=== PATIENT | female | born 1940 | race Caucasian/White ===

== ENCOUNTER 2020-11-17 16:08 | Observation (INO) ==
[2020-11-17] MEDS ORDERED: 0.9 % Sodium Chloride 1,000 ML IVC ONE (16:34)
[2020-11-17] MEDS ORDERED: Aspirin 325 MG TABLET PO ONE (16:34)
[2020-11-17 16:49] LABS: Basophils % 0.3 %; Eosinophils % 0.4 %; Hemoglobin 14.8 g/dL (11.5-15.4); Immature Granulocytes % 0.3 % (0-4); Lymphocytes # 1.7 K/mcL (0.6-4.6); Mean Corpuscular HGB Conc 32.9 g/dL (31.6-35.5); Mean Corpuscular Hemoglobin 29.3 pg (28.0-33.3); Mean Corpuscular Volume 89.1 fL (83.0-100.0); Monocytes # 0.7 K/mcL (0.0-1.3); Monocytes % 7.6 %; Neutrophils # 6.4 K/mcL (1.6-8.9); Platelet Count 229 K/mcL (140-400); Red Blood Count 5.05 M/mcL (3.82-4.97); Red Cell Distribution Width 13.4 % (11.5-14.5); Segmented Neutrophils % 72.4 %; White Blood Count 8.9 K/mcL (4.3-11.1)
[2020-11-17 16:58] LABS: INR 1.1; Prothrombin Time 12.4 Seconds (9.4-12.1)
[2020-11-17 17:12] LABS: BUN/Creatinine Ratio 24 (6-26); Blood Urea Nitrogen 22 mg/dL (8-23); Calcium 9.6 mg/dL (8.6-10.3); Carbon Dioxide 28 mEq/L (23-29); Chloride 105 mEq/L (98-107); Glucose 120 mg/dL (70-105); Magnesium 1.6 mg/dL (1.6-2.6); Osmolality,Calculated 297 (280-300); Potassium 3.5 mEq/L (3.5-5.1); Sodium 141 mEq/L (136-145); Troponin I < 0.03 ng/mL (< 0.04); eGFR For African Americans > 60 (> 60); eGFR For Non-African Americans > 60 (> 60)
[2020-11-17 17:21] LABS: Thyroid Stimulating Hormone 0.614 mcIU/mL (0.340-5.600)
[2020-11-17] MEDS ORDERED: DilTIAZem 50 MG/50 ML IV.SOLN IVC SCH (17:30)
[2020-11-17] MEDS ORDERED: *HR* Heparin 5,000 UNIT/ML VIAL IVP ONE (18:16)
[2020-11-17] MEDS ORDERED: *HR* Heparin 5,000 UNIT/ML VIAL IVP PRN ×2 (18:16)
[2020-11-17 19:11] LABS: Hematocrit 45.6 % (35.3-44.9); Hemoglobin 15.1 g/dL (11.5-15.4); Mean Corpuscular HGB Conc 33.1 g/dL (31.6-35.5); Mean Corpuscular Hemoglobin 29.5 pg (28.0-33.3); Mean Corpuscular Volume 89.2 fL (83.0-100.0); Mean Platelet Volume 9.6 fL (9.4-12.4); Platelet Count 245 K/mcL (140-400); Red Blood Count 5.11 M/mcL (3.82-4.97); Red Cell Distribution Width 13.2 % (11.5-14.5); White Blood Count 9.1 K/mcL (4.3-11.1)
[2020-11-17 19:20] LABS: Heparin anti-factor XA UFH 0.04 IU/mL (0.30-0.70)
[2020-11-17 19:21] LABS: Prothrombin Time 11.8 Seconds (9.4-12.1)
[2020-11-17] MEDS: Heparin 25,000UNIT/250ML 1/2NS 25,000 UNIT/250 ML IV.SOLN IVC SCH (19:26)
[2020-11-17] MEDS ORDERED: Acetaminophen 325 MG TABLET PO PRN (20:25)
[2020-11-17] MEDS ORDERED: Ondansetron 4 MG/2 ML VIAL IVP PRN (20:25)
[2020-11-17] MEDS ORDERED: Naloxone 0.4 MG/ML INJ IVP PRN (20:25)
[2020-11-17] MEDS ORDERED: Perflutren Lipid Microsphere 1.3 ML in 0.9 % Sodium Chloride 8.7 ML IVP PRN (20:26)
[2020-11-17 22:39] LABS: BUN/Creatinine Ratio 22 (6-26); Blood Urea Nitrogen 17 mg/dL (8-23); Carbon Dioxide 25 mEq/L (23-29); Chloride 107 mEq/L (98-107); Glucose 127 mg/dL (70-105); Osmolality,Calculated 295 (280-300); Potassium 3.6 mEq/L (3.5-5.1); Sodium 141 mEq/L (136-145); eGFR For African Americans > 60 (> 60); eGFR For Non-African Americans > 60 (> 60)
[2020-11-17] MEDS: DilTIAZem 50 MG/50 ML IV.SOLN IVC SCH (23:54)
[2020-11-18 01:34] LABS: Basophils % 0.3 %; Eosinophils % 0.3 %; Hematocrit 44.2 % (35.3-44.9); Hemoglobin 14.6 g/dL (11.5-15.4); Immature Granulocytes % 0.1 % (0-4); Lymphocytes # 1.7 K/mcL (0.6-4.6); Lymphocytes % 24.1 %; Mean Corpuscular Hemoglobin 29.1 pg (28.0-33.3); Mean Corpuscular Volume 88.2 fL (83.0-100.0); Mean Platelet Volume 10.2 fL (9.4-12.4); Monocytes # 0.5 K/mcL (0.0-1.3); Monocytes % 7.5 %; Neutrophils # 4.6 K/mcL (1.6-8.9); Platelet Count 231 K/mcL (140-400); Red Blood Count 5.01 M/mcL (3.82-4.97); Red Cell Distribution Width 13.4 % (11.5-14.5); Segmented Neutrophils % 67.7 %; White Blood Count 6.8 K/mcL (4.3-11.1)
[2020-11-18 01:57] LABS: Chol/HDL Ratio 2.6 (0-4.9); Magnesium 1.8 mg/dL (1.6-2.6)
[2020-11-18 02:05] LABS: Bilirubin,Urine Negative (Negative); Blood,Urine Negative (Negative); Clarity,Urine Clear (Clear); Color,Urine Colorless (Yellow); Glucose,Urine (UA) Normal (Normal); Ketones,Urine Trace mg/dL (Negative); Leukocyte Esterase,Urine Negative (Negative); Nitrite,Urine Negative (Negative); PH,Urine 6.5 pH Units (5.0-8.0); Protein,Urine Negative (Neg-Trace); Specific Gravity,Urine 1.012 (1.010-1.025); Urobilinogen,Urine Normal (Normal)
[2020-11-18 03:48] LABS: Estimated Average Glucose 134 mg/dl; Hemoglobin A1C 6.3 %
[2020-11-18] MEDS: DilTIAZem 50 MG/50 ML IV.SOLN IVC SCH (11:50)
[2020-11-18] MEDS: lisinopriL 20 MG TABLET PO SCH (12:36)
[2020-11-18] MEDS: Aspirin Enteric Coated 81 MG Tablet PO SCH (12:36)
[2020-11-18] MEDS: Heparin 25,000UNIT/250ML 1/2NS 25,000 UNIT/250 ML IV.SOLN IVC SCH ×2 (15:22→17:29)
[2020-11-19 03:07] LABS: Hematocrit 42.6 % (35.3-44.9); Hemoglobin 13.5 g/dL (11.5-15.4); Mean Corpuscular HGB Conc 31.7 g/dL (31.6-35.5); Mean Corpuscular Hemoglobin 28.9 pg (28.0-33.3); Mean Corpuscular Volume 91.2 fL (83.0-100.0); Mean Platelet Volume 9.7 fL (9.4-12.4); Platelet Count 215 K/mcL (140-400); Red Blood Count 4.67 M/mcL (3.82-4.97); Red Cell Distribution Width 13.5 % (11.5-14.5); White Blood Count 5.6 K/mcL (4.3-11.1)
[2020-11-19 03:36] LABS: BUN/Creatinine Ratio 23 (6-26); Blood Urea Nitrogen 16 mg/dL (8-23); Calcium 8.8 mg/dL (8.6-10.3); Carbon Dioxide 24 mEq/L (23-29); Chloride 108 mEq/L (98-107); Glucose 113 mg/dL (70-105); Magnesium 1.9 mg/dL (1.6-2.6); Osmolality,Calculated 292 (280-300); Potassium 3.8 mEq/L (3.5-5.1); Sodium 140 mEq/L (136-145); eGFR For African Americans > 60 (> 60); eGFR For Non-African Americans > 60 (> 60)
[2020-11-19] MEDS: Heparin 25,000UNIT/250ML 1/2NS 25,000 UNIT/250 ML IV.SOLN IVC SCH (06:56)
[2020-11-19 07:15] VITALS: BP 120/75
[2020-11-19] MEDS: lisinopriL 20 MG TABLET PO SCH (07:19)
[2020-11-19] MEDS: Aspirin Enteric Coated 81 MG Tablet PO SCH (07:19)
[2020-11-19] MEDS: DilTIAZem 50 MG/50 ML IV.SOLN IVC SCH (08:40)
[2020-11-19] MEDS ORDERED: DilTIAZem CD (24hr) 120 MG CAP.ER.24H PO SCH (09:00)
== END 2020-11-19 11:06 | disposition home or self-care (01) ==
LOC: 2ANU 16:08 → EMEROOARM 16:08 → SUATTDRO 19:42 → 2ANU 21:35
PROVIDERS: ADMIT Student in an Organized Health Care Education/Training Program; ATTEND Internal Medicine

== ENCOUNTER 2021-11-29 11:37 | Inpatient (IN) ==
[2021-11-29 13:01] LABS: Hematocrit 45.1 % (35.3-44.9); Immature Granulocytes % 0.4 % (0-4); Lymphocytes % 17.1 %; Mean Corpuscular HGB Conc 33.3 g/dL (31.6-35.5); Mean Corpuscular Hemoglobin 29.8 pg (28.0-33.3); Mean Corpuscular Volume 89.7 fL (83.0-100.0); Mean Platelet Volume 9.7 fL (9.4-12.4); Platelet Count 306 K/mcL (140-400); Red Blood Count 5.03 M/mcL (3.82-4.97); Red Cell Distribution Width 13.5 % (11.5-14.5); Segmented Neutrophils % 73.9 %; White Blood Count 7.2 K/mcL (4.3-11.1)
[2021-11-29 13:02] LABS: Basophils % 0.4 %; Eosinophils % 0.4 %; Lymphocytes # 1.2 K/mcL (0.6-4.6); Monocytes # 0.6 K/mcL (0.0-1.3); Monocytes % 7.8 %; Neutrophils # 5.3 K/mcL (1.6-8.9)
[2021-11-29 13:20] LABS: BUN/Creatinine Ratio 21 (6-26); Blood Urea Nitrogen 21 mg/dL (8-23); Calcium 9.4 mg/dL (8.6-10.3); Carbon Dioxide 28 mEq/L (23-29); Chloride 101 mEq/L (98-107); Glucose 117 mg/dL (70-105); Osmolality,Calculated 292 (280-300); Potassium 3.3 mEq/L (3.5-5.1); Sodium 139 mEq/L (136-145); Troponin I < 0.03 ng/mL (< 0.04); eGFR For African Americans > 60 (> 60); eGFR For Non-African Americans 53 (> 60)
[2021-11-29 15:07] LABS: Thyroid Stimulating Hormone 0.909 mcIU/mL (0.340-5.600)
[2021-11-29 15:32] LABS: Influenza A PCR Negative (Negative); Influenza B PCR Negative (Negative); Resp. Syncytial Virus PCR Negative (Negative)
[2021-11-29] MEDS ORDERED: Ondansetron ODT 4 MG TAB.RAPDIS SL PRN (16:19)
[2021-11-29] MEDS ORDERED: Naloxone 0.4 MG/ML INJ IVP PRN (16:19)
[2021-11-29] MEDS ORDERED: Melatonin 3 MG TABLET PO PRN (16:19)
[2021-11-29] MEDS ORDERED: Mag Hydrox/Al Hydrox/Simeth 30 ML UDC PO PRN (16:19)
[2021-11-29] MEDS ORDERED: MOM Conc 10 ML UD.LIQ PO PRN (16:19)
[2021-11-29 16:20] LABS: SARS-CoV-2 by PCR (In House) Negative (Negative)
[2021-11-29] MEDS ORDERED: Perflutren Lipid Microsphere 1.3 ML in 0.9 % Sodium Chloride 8.7 ML IVP PRN (16:22)
[2021-11-29] MEDS: DilTIAZem 50 MG/50 ML IV.SOLN IVC SCH ×2 (17:12→21:43)
[2021-11-29] MEDS: *HR* Rivaroxaban 10 MG TABLET PO SCH (17:42)
[2021-11-30 01:14] LABS: Basophils % 0.3 %; Eosinophils # 0.1 K/mcL (0.0-0.6); Eosinophils % 0.8 %; Hematocrit 40.3 % (35.3-44.9); Immature Granulocytes % 0.3 % (0-4); Lymphocytes # 1.6 K/mcL (0.6-4.6); Lymphocytes % 21.1 %; Mean Corpuscular HGB Conc 32.5 g/dL (31.6-35.5); Mean Corpuscular Hemoglobin 29.8 pg (28.0-33.3); Mean Corpuscular Volume 91.6 fL (83.0-100.0); Mean Platelet Volume 9.7 fL (9.4-12.4); Monocytes # 0.7 K/mcL (0.0-1.3); Monocytes % 9.2 %; Neutrophils # 5.1 K/mcL (1.6-8.9); Platelet Count 280 K/mcL (140-400); Red Cell Distribution Width 13.4 % (11.5-14.5); Segmented Neutrophils % 68.3 %; White Blood Count 7.4 K/mcL (4.3-11.1)
[2021-11-30 01:18] LABS: Hemoglobin 13.1 g/dL (11.5-15.4)
[2021-11-30] MEDS: DilTIAZem 50 MG/50 ML IV.SOLN IVC SCH ×3 (01:40→09:40)
[2021-11-30 01:45] LABS: Alanine Aminotransferase 15 Units/L (7-52); Albumin 3.4 g/dL (3.5-5.7); Albumin/Globulin Ratio 1.2 (1.1-2.2); Alkaline Phosphatase 67 Units/L (34-104); Aspartate Amino Transferase 14 Units/L (13-39); BUN/Creatinine Ratio 23 (6-26); Bilirubin,Total 0.5 mg/dL (0.3-1.0); Blood Urea Nitrogen 23 mg/dL (8-23); Calcium 8.8 mg/dL (8.6-10.3); Carbon Dioxide 26 mEq/L (23-29); Chloride 106 mEq/L (98-107); Globulin 2.8 g/dL (2.4-3.5); Glucose 106 mg/dL (70-105); Osmolality,Calculated 294 (280-300); Potassium 4.4 mEq/L (3.5-5.1); Sodium 140 mEq/L (136-145); Total Protein 6.2 g/dL (6.4-8.9); eGFR For African Americans > 60 (> 60); eGFR For Non-African Americans 53 (> 60)
[2021-11-30] MEDS: hydroCHLOROthiazide 25 MG TABLET PO SCH (09:36)
[2021-11-30] MEDS ORDERED: DilTIAZem CD (24hr) 120 MG CAP.ER.24H PO SCH (10:00)
[2021-11-30] MEDS: *HR* Rivaroxaban 10 MG TABLET PO SCH (18:13)
[2021-12-01 03:29] LABS: BUN/Creatinine Ratio 25 (6-26); Blood Urea Nitrogen 23 mg/dL (8-23); Calcium 8.6 mg/dL (8.6-10.3); Carbon Dioxide 24 mEq/L (23-29); Chloride 106 mEq/L (98-107); Glucose 129 mg/dL (70-105); Osmolality,Calculated 293 (280-300); Potassium 3.7 mEq/L (3.5-5.1); Sodium 139 mEq/L (136-145); eGFR For African Americans > 60 (> 60); eGFR For Non-African Americans 59 (> 60)
[2021-12-01] MEDS: hydroCHLOROthiazide 25 MG TABLET PO SCH (08:45)
[2021-12-01] MEDS: DilTIAZem CD (24hr) 120 MG CAP.ER.24H PO SCH (08:46)
[2021-12-01] MEDS: *HR* Rivaroxaban 10 MG TABLET PO SCH (18:39)
[2021-12-02] MEDS: hydroCHLOROthiazide 25 MG TABLET PO SCH (08:05)
[2021-12-02] MEDS: DilTIAZem CD (24hr) 120 MG CAP.ER.24H PO SCH (08:05)
[2021-12-02 08:16] LABS: BUN/Creatinine Ratio 23 (6-26); Blood Urea Nitrogen 21 mg/dL (8-23); Calcium 8.7 mg/dL (8.6-10.3); Carbon Dioxide 27 mEq/L (23-29); Chloride 104 mEq/L (98-107); Glucose 122 mg/dL (70-105); Osmolality,Calculated 290 (280-300); Potassium 3.9 mEq/L (3.5-5.1); Sodium 138 mEq/L (136-145); eGFR For African Americans > 60 (> 60); eGFR For Non-African Americans 58 (> 60)
[2021-12-02 12:05] VITALS: BP 104/69; PULSE 59; TEMP 97.9; O2SAT 94
== END 2021-12-02 13:47 | disposition home or self-care (01) | DRG 310 ==
LOC: EMEROOARM 11:37 → 3BNU 11:37
PROVIDERS: ADMIT Nurse Practitioner; ATTEND Internal Medicine